=== PATIENT | male | born 1970 | race American Indian/Alaskan Native ===

== ENCOUNTER 2017-06-15 06:04 | Day surgery (SDC) | payer BC ==
[2017-06-08 12:55] VITALS: BMI 44.4
[2017-06-15 06:43] LABS: BASO # 0.03 K/mm3 (0.0-2.0); BASO % 0.5 % (0.0-3.0); EOS # 0.1 (0.0-0.7); EOS % 2.4 % (1.5-5.0); GRAN # 3.08 (1.4-6.5); GRAN % 51.8 % (50.0-68.0); HEMOGLOBIN 13.7 g/dL (14.0-18.0); LYMPH # 2.4 (1.2-3.4); LYMPH % 39.7 % (22.0-35.0); MEAN CELL VOLUME 87.2 fl (80.0-105.0); MEAN CORPUSCULAR HEMOGLOBIN 28.7 pg (25.0-35.0); MEAN CORPUSCULAR HGB CONC 32.9 g/dl (31.0-37.0); MEAN PLATELET VOLUME 10.6 fl (7.0-11.0); MONO # 0.3 (0.1-0.6); MONO % 5.6 % (1.0-6.0); RBC 4.78 10^6/uL (3.5-6.1); WHITE BLOOD COUNT 5.9 10^3/ul (4.5-11.0)
[2017-06-15 06:56] LABS: BLOOD UREA NITROGEN 16 mg/dL (7-21); CALCIUM 9.4 mg/dL (8.4-10.5); GFR AFRICAN-AMERICAN > 60; GFR NON-AFRICAN AMERICAN > 60
[2017-06-15] MEDS ORDERED: Bupivacaine 0.5% Inj(30mL) ONE (07:13)
[2017-06-15] MEDS ORDERED: Lidocaine 1% Inj (20ml) ONE (07:14)
[2017-06-15] MEDS ORDERED: Propofol 10 mg/ml Inj (20 ML) ONE (08:29)
[2017-06-15] MEDS ORDERED: Midazolam 2 MG/2 ML VIAL ONE (08:29)
--- NOTE | 2017-06-15 10:03 | PCM.SURG1 ---
Surgeon's Initial Post Op Note - Surgeon's Notes Surgeon: Dr. Perez Reference Investigator: Dr. Carvajal PGY3, Dr. Ross PGY2 Type of Anesthesia: General LMA Anesthesia Administered By: Dr. Marinelli Pre-Operative Diagnosis: draining sinus tract. groin mass Operative Findings: see operative report Post-Operative Diagnosis: same Operation Performed: excision of sinus tract. removal of foreign body Specimen/Specimens Removed: foreign body. abscess cavity Estimated Blood Loss: EBL {In ML}: 30 Blood Products Given: N/A Drains Used: No Drains Post-Op Condition: Good Date of Surgery/Procedure: 06/15/17 Time of Surgery/Procedure: 09:00
[2017-06-15] MEDS ORDERED: Lactated Ringer's 1,000 ML IV SCH (10:30)
[2017-06-15 10:40] VITALS: O2SAT 99
[2017-06-15 11:13] VITALS: RESP 18; TEMP 97.6
[2017-06-15 11:44] VITALS: BP 124/78; PULSE 99
--- NOTE | 2017-06-17 08:47 | OP ---
PROCEDURE DATE: 06/15/2017 PREOPERATIVE DIAGNOSES: 1. Drainage from the left groin and scrotum. 2. Left groin mass. POSTOPERATIVE DIAGNOSES: 1. Drainage from the left groin and scrotum. 2. Left groin mass. PROCEDURE PERFORMED: 1. Exploration of left side of the scrotum and groin. 2. Removal of the foreign body from the wound and removal of the chronic granulation tissue. SURGEON: Zac Perez MD. FLOOR CASHIER: Dr. Mohan and Dr. Ross. TYPE OF ANESTHESIA: General endotracheal anesthesia. ANESTHESIOLOGIST: Dr. Marinelli. ESTIMATED BLOOD LOSS: Minimal. SPECIMEN: Foreign body and granulation tissue. DESCRIPTION OF PROCEDURE: The patient is a 46-year-old male with morbid obesity, who was seen in the office, who complains of a persistent recurrent drainage from the mass located on the left groin/scrotum, which apparently he had for several months. The patient apparently previously had a surgery for varicocele on that side and shortly after the surgery, had developed the mass and complained of recurrent drainage. The patient was brought in for removal of the mass, possible debridement of the infection. The patient was brought to the operating room and placed on the operating table in supine position. The patient was connected to the EKG, blood pressure and pulse oximetry monitors. The patient then underwent general LMA anesthesia and was prepped and draped in the usual sterile fashion. First, standard time-out procedure took place where everybody in the room agreed as to the patient identity, diagnoses and procedure to be performed. Using lidocaine mixed with Marcaine, the area of the mass was infiltrated and an elliptical portion of the skin overlying draining area was marked and incised using a #15 blade. This was done in order to remove the entire tract from the infected portion of the wound. The incision was about 5 inches in length and was carried down through the subcutaneous fat into the scrotum and the scrotal fat. Careful dissection was done in order to avoid early injury to the spermatic cord. The mass appeared to be about 6 x 4 cm and about 4 cm deep and appeared to be lying on top of the spermatic cord. This was carefully dissected out from the surrounding tissue taking care of hemostasis and avoiding any spillage of the content. Once this was completely detached and the underlying cord appeared to be intact, I then copiously irrigated the wound and closed the wound in layers using 3-0 Vicryl for the deep layers, 3-0 nylon for the skin and placed iodoform gauze packing in the lower corner of the wound and pushed it into the wound, which was loosely packed. Then a sterile dressing was applied to the wound. A scrotal support compression was also applied on top of that. The patient tolerated the procedure well and there were no complications. Patient was awakened and transferred to the recovery room for further observation. Zac Perez MD
== END 2017-06-15 12:40 | disposition home or self-care (01) ==
LOC: SDS 06:04
PROVIDERS: ATTEND General Practice
DX: R19.09 Other intra-abdominal and pelvic swelling, mass and lump (principal); L92.3 Foreign body granuloma of the skin and subcutaneous tissue; E66.01 Morbid (severe) obesity due to excess calories; Z68.41 Body mass index [BMI] 40.0-44.9, adult
CPT/HCPCS: 11426; 36415; 80048; 85025; 88305; J0690; J2001; J2250; J2704; J3010; J7120 ×2